=== PATIENT | male | born 1980 | race Two or more races ===

== ENCOUNTER 2024-11-11 10:07 | Emergency (ER) | payer SELFPAY ==
[2024-11-11 10:08] VITALS: BMI 32.3
[2024-11-11 10:24] VITALS: BP 179/146; BP 202/135; PULSE 100; RESP 16; TEMP 37.2; O2SAT 96
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
[2024-11-11] MEDS: ACETAMINOPHEN 500 MG TABLET 1000 MG PO (10:36)
[2024-11-11 10:37] VITALS: BP 202/135; PULSE 100
[2024-11-11] MEDS: cloNIDine HCL 0.1 MG TABLET 0.2 MG PO (10:37)
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
== END 2024-11-11 13:44 | disposition home or self-care (01) ==
PROVIDERS: Emergency Provider Emergency Medicine
DX: S13.4XXA Sprain of ligaments of cervical spine, initial encounter (principal); V53.5XXA Driver of pick-up truck or van injured in collision with car, pick-up truck or van in traffic accident, initial encounter
CPT/HCPCS: 71250; 74176; 99284; A9270